=== PATIENT | male | born 1970 | race African-American/Black ===

== ENCOUNTER 2017-08-05 05:35 | Emergency (ER) | payer SELFPAY ==
[2017-08-05 06:13] LABS: BASOPHILS 0.4 % (0-2); EOSINOPHILS 4.2 % (0-7); HEMATOCRIT 45.6 % (42.0-54.0); HEMOGLOBIN 15.2 g/dL (13.5-17.5); IMMATURE GRANULOCYTES 0.2 % (0-5); LYMPHOCYTES 45.6 % (15-50); MCH 31.5 pg (26.0-34.0); MCHC 33.3 g/dL (31.0-37.0); MCV 94.6 fL (80.0-100.0); MEAN PLATELET VOLUME 9.1 fL (7.4-10.4); MONOCYTES 12.5 % (2-11); NEUTROPHILS 37.1 % (40-80); PLATELET COUNT 258 10x3/uL (130-400); RBC 4.82 10x6/uL (4.20-6.10); RDW 12.7 % (11.5-14.5); WBC 5.4 10x3/uL (4.8-10.8)
[2017-08-05 06:36] LABS: APPEARANCE HAZY (CLEAR); BACTERIA FEW /hpf (NONE SEEN); BILIRUBIN NEGATIVE (NEGATIVE); COLOR YELLOW (YELLOW); EPITHELIAL CELLS 0-5 /hpf (0-5); GLUCOSE NEGATIVE (NEGATIVE); KETONE NEGATIVE (NEGATIVE); MUCUS >1+ /lpf (NONE SEEN); NITRITE NEGATIVE (NEGATIVE); PROTEIN NEGATIVE (NEGATIVE); WHITE CELLS - URINE 0-5 /hpf (0-5)
[2017-08-05 06:37] LABS: ALBUMIN 3.6 g/dL (3.4-5.0); ANION GAP 10.7 mmol/L (8-16); BILIRUBIN - TOTAL 0.44 mg/dL (0.2-1.3); CALCIUM 8.7 mg/dL (8.5-10.1); CARBON DIOXIDE 28.9 mmol/L (21.0-32.0); CREATININE - SERUM 1.2 mg/dL (0.6-1.3); POTASSIUM - SERUM 3.6 mmol/L (3.5-5.1); PROTEIN - SERUM 7.5 g/dL (6.4-8.2)
== END 2017-08-05 12:30 | disposition home or self-care (01) ==
LOC: D.ER 05:35
PROVIDERS: Family Medicine
DX: K85.90 Acute pancreatitis without necrosis or infection, unspecified (principal); K21.9 Gastro-esophageal reflux disease without esophagitis

== ENCOUNTER 2018-04-17 17:15 | Emergency (ER) | payer OTHER ==
[~2018-04-17] VITALS: Ht 172.7 cm; Wt 81.8 kg
[2018-04-17 17:21] VITALS: Ht 172.7 cm; Wt 81.8 kg
[2018-04-17 17:43] LABS: BASOPHILS 0.3 % (0-2); HEMATOCRIT 44.6 % (42.0-54.0); HEMOGLOBIN 15.6 g/dL (13.5-17.5); IMMATURE GRANULOCYTES 0.1 % (0-5); LYMPHOCYTES 41.3 % (15-50); MCH 32.1 pg (26.0-34.0); MCV 91.8 fL (80.0-100.0); MEAN PLATELET VOLUME 9.2 fL (7.4-10.4); MONOCYTES 8.8 % (2-11); NEUTROPHILS 47.5 % (40-80); PLATELET COUNT 215 10x3/uL (130-400); RBC 4.86 10x6/uL (4.20-6.10); RDW 12.6 % (11.5-14.5); WBC 7.6 10x3/uL (4.8-10.8)
[2018-04-17 17:58] LABS: ALBUMIN 3.9 g/dL (3.4-5.0); ANION GAP 8.1 mmol/L (8-16); BILIRUBIN - TOTAL 0.57 mg/dL (0.2-1.3); CARBON DIOXIDE 31.5 mmol/L (21.0-32.0); CREATININE - SERUM 1.2 mg/dL (0.6-1.3); POTASSIUM - SERUM 3.6 mmol/L (3.5-5.1); PROTEIN - SERUM 7.8 g/dL (6.4-8.2)
[2018-04-17 18:05] LABS: APPEARANCE CLEAR (CLEAR); BILIRUBIN 1+ (NEGATIVE); COLOR AMBER (YELLOW); GLUCOSE NEGATIVE (NEGATIVE); KETONE SMALL mg/dL (NEGATIVE); NITRITE NEGATIVE (NEGATIVE); PROTEIN NEGATIVE (NEGATIVE)
[2018-04-17 18:06] LABS: RED CELLS - URINE 0-5 /hpf (0-5); WHITE CELLS - URINE RARE /hpf (0-5)
[2018-04-17 18:07] LABS: BACTERIA FEW /hpf (NONE SEEN); MUCUS >1+ /lpf (NONE SEEN)
[2018-04-17] MEDS ORDERED: CIPRO500 MG PO (20:18)
[2018-04-17] MEDS ORDERED: ZOFRAN4 MG PO (20:18)
[2018-04-17 20:25] VITALS: BP 127/74
== END 2018-04-17 20:25 | disposition home or self-care (01) ==
LOC: D.ER 17:15
PROVIDERS: Emergency Medicine
DX: N39.0 Urinary tract infection, site not specified (principal); R11.2 Nausea with vomiting, unspecified; F17.200 Nicotine dependence, unspecified, uncomplicated

== ENCOUNTER 2018-12-22 06:57 | Emergency (ER) | payer SELFPAY ==
[~2018-12-22 06:57] MED LIST: CIPRO500 MG PO; ZOFRAN4 MG PO
[2018-12-22 07:03] VITALS: Ht 172.7 cm
[2018-12-22 07:25] LABS: HEMATOCRIT 43.9 % (42.0-54.0); MCHC 34.2 g/dL (31.0-37.0); MCV 90.7 fL (80.0-100.0); MEAN PLATELET VOLUME 9.1 fL (7.4-10.4); PLATELET COUNT 238 10x3/uL (130-400); RBC 4.84 10x6/uL (4.20-6.10); WBC 5.9 10x3/uL (4.8-10.8)
[2018-12-22 07:43] LABS: ALBUMIN 3.8 g/dL (3.4-5.0); ALKALINE PHOSPHATASE 126 U/L (46-116); ALT (SGPT) 26 U/L (10-68); AMYLASE - SERUM 31 U/L (25-115); CALC OSMOLALITY 277 mosm/kg (275-300); CALCIUM 8.9 mg/dL (8.5-10.1); CHLORIDE - SERUM 102 mmol/L (98-107); GLUCOSE 107 mg/dL (74-106); LIPASE 93 U/L (73-393); POTASSIUM - SERUM 3.9 mmol/L (3.5-5.1); PROTEIN - SERUM 8.1 g/dL (6.4-8.2); SODIUM 140 mmol/L (136-145); UREA NITROGEN 9 mg/dL (7-18); eGFR NON AFRICAN AMERICAN 85 mL/min (90-120)
[2018-12-22] MEDS ORDERED: ZANTAC300 MG PO (08:10)
[2018-12-22 08:25] LABS: APPEARANCE CLEAR (CLEAR); COLOR STRAW (YELLOW); GLUCOSE NEGATIVE (NEGATIVE); KETONE LARGE mg/dL (NEGATIVE); NITRITE NEGATIVE (NEGATIVE); PROTEIN NEGATIVE (NEGATIVE); SPECIFIC GRAVITY 1.015 (1.005-1.020)
[2018-12-22 08:26] LABS: BILIRUBIN NEGATIVE (NEGATIVE)
[2018-12-22 08:31] LABS: EOSINOPHILS 5 % (0-7); LYMPHOCYTES 31 % (15-50); MONOCYTES 22 % (2-11); NEUTROPHILS 36 % (40-80); PLATELET ESTIMATE NORMAL
[2018-12-22] MEDS ORDERED: HYDROCODON-ACE1 EAC7 PO (09:00)
[2018-12-22] MEDS ORDERED: PROTONIX40 MG PO (09:00)
[2018-12-22 11:04] VITALS: BP 147/87
== END 2018-12-22 11:00 | disposition home or self-care (01) ==
LOC: D.ER 06:57
PROVIDERS: Emergency Medicine
DX: K29.00 Acute gastritis without bleeding (principal); R11.10 Vomiting, unspecified

== ENCOUNTER 2019-03-09 17:30 | Emergency (ER) | payer SELFPAY ==
[~2019-03-09] VITALS: Ht 172.7 cm; Wt 86.4 kg
[~2019-03-09 17:30] MED LIST changes: +HYDROCODON-ACE1 EAC7 PO; +PROTONIX40 MG PO; +ZANTAC300 MG PO
[2019-03-09 18:21] VITALS: Ht 172.7 cm; Wt 86.4 kg
[2019-03-09] MEDS ORDERED: MUPIROCIN22 GM TOPICAL (19:22)
[2019-03-09] MEDS ORDERED: CLEOCIN HCL300 MG PO (19:22)
[2019-03-09 20:05] VITALS: BP 121/85
== END 2019-03-09 20:05 | disposition home or self-care (01) ==
LOC: D.ER 17:30
DX: S63.502A Unspecified sprain of left wrist, initial encounter (principal); V49.9XXA Car occupant (driver) (passenger) injured in unspecified traffic accident, initial encounter; Y93.89 Activity, other specified; Y92.410 Unspecified street and highway as the place of occurrence of the external cause; S60.222A Contusion of left hand, initial encounter

== ENCOUNTER 2019-04-15 18:07 | Emergency (ER) | payer SELFPAY ==
[~2019-04-15] VITALS: Ht 172.7 cm; Wt 75.0 kg
[~2019-04-15 18:07] MED LIST changes: +CLEOCIN HCL300 MG PO; +MUPIROCIN22 GM TOPICAL
[2019-04-15 18:11] VITALS: Ht 172.7 cm; Wt 75.0 kg
[2019-04-15] MEDS ORDERED: PREDNISONE20 MG PO (20:12)
[2019-04-15] MEDS ORDERED: ROBAXIN500 MG PO (20:12)
[2019-04-15 20:43] VITALS: BP 118/64
== END 2019-04-15 20:45 | disposition home or self-care (01) ==
LOC: D.ER 18:07
DX: S20.211A Contusion of right front wall of thorax, initial encounter (principal); X58.XXXA Exposure to other specified factors, initial encounter; Y93.89 Activity, other specified; Y92.89 Other specified places as the place of occurrence of the external cause; M25.511 Pain in right shoulder

== ENCOUNTER 2019-10-31 22:58 | Emergency (ER) | payer SELFPAY ==
[~2019-10-31] VITALS: Ht 172.7 cm; Wt 79.5 kg
[~2019-10-31 22:58] MED LIST changes: +DOXYCYCLINE HY100 M2 PO; +PREDNISONE20 MG PO; +ROBAXIN500 MG PO; +TORADOL10 MG PO
[2019-10-31 23:03] VITALS: Ht 172.7 cm; Wt 79.5 kg
[2019-10-31 23:28] LABS: BASOPHILS 0.1 % (0-2); HEMATOCRIT 42.2 % (42.0-54.0); HEMOGLOBIN 13.9 g/dL (13.5-17.5); IMMATURE GRANULOCYTES 0.1 % (0-5); LYMPHOCYTES 31.7 % (15-50); MCH 31.2 pg (26.0-34.0); MCHC 32.9 g/dL (31.0-37.0); MCV 94.8 fL (80.0-100.0); MEAN PLATELET VOLUME 8.5 fL (7.4-10.4); MONOCYTES 7.2 % (2-11); NEUTROPHILS 56.9 % (40-80); RBC 4.45 10x6/uL (4.20-6.10); RDW 13.2 % (11.5-14.5); WBC 7.9 10x3/uL (4.8-10.8)
[2019-10-31 23:29] LABS: PLATELET COUNT 318 10x3/uL (130-400)
[2019-10-31 23:34] LABS: APPEARANCE CLEAR (CLEAR); BILIRUBIN NEGATIVE (NEGATIVE); COLOR YELLOW (YELLOW); GLUCOSE NEGATIVE (NEGATIVE); KETONE NEGATIVE (NEGATIVE); NITRITE NEGATIVE (NEGATIVE); PROTEIN NEGATIVE (NEGATIVE); RED CELLS - URINE 0-5 /hpf (0-5); SPECIFIC GRAVITY 1.015 (1.005-1.020); UROBILINOGEN NORMAL (NORMAL); WHITE CELLS - URINE 0-5 /hpf (NEGATIVE)
[2019-10-31 23:35] LABS: BACTERIA NONE SEEN /hpf (NEGATIVE); URIC ACID CRYSTALS 0-5 /hpf (NONE SEEN)
[2019-10-31 23:41] LABS: ANION GAP 9.6 mmol/L (8-16); CALCIUM 8.8 mg/dL (8.5-10.1); CARBON DIOXIDE 31.2 mmol/L (21.0-32.0); CREATININE - SERUM 1.2 mg/dL (0.6-1.3); POTASSIUM - SERUM 3.8 mmol/L (3.5-5.1)
[2019-11-01 00:43] VITALS: BP 136/78
== END 2019-11-01 00:43 | disposition home or self-care (01) ==
LOC: D.ER 22:58
PROVIDERS: Emergency Medicine
DX: N45.1 Epididymitis (principal); K21.9 Gastro-esophageal reflux disease without esophagitis; F17.210 Nicotine dependence, cigarettes, uncomplicated